=== PATIENT | female | born 1960 | race Caucasian/White ===

== ENCOUNTER 2022-07-25 11:15 | Outpatient (RCR) | payer OTHER ==
[~2022-07-25 11:15] MED LIST: AMITRIPTYLINE H10 M1 PO; ASPIRIN 81M81 MG/TA2 PO; LIPITOR 10MG10 MG PO; LIPITOR20 MG PO; LITHIUM 30300 MG/CAP PO; LOTENSIN 1010 MG/TAB PO; PLAVIX 75MG TAB75 MG PO
== END 2022-07-31 | disposition home or self-care (01) ==
LOC: WSST
DX: R41.841 Cognitive communication deficit (principal); R47.1 Dysarthria and anarthria

== ENCOUNTER 2022-08-22 11:15 | Outpatient (RCR) | payer OTHER | END 2022-08-28 | disposition home or self-care (01) | LOC: WSST | DX: R41.841 Cognitive communication deficit (principal) ==

== ENCOUNTER 2022-09-26 11:15 | Outpatient (RCR) | payer OTHER | END 2022-09-28 | disposition home or self-care (01) | LOC: WSST | DX: I69.322 Dysarthria following cerebral infarction (principal); I69.311 Memory deficit following cerebral infarction; I69.310 Attention and concentration deficit following cerebral infarction ==

== ENCOUNTER 2022-10-17 11:15 | Outpatient (RCR) | payer OTHER | END 2022-10-28 | disposition home or self-care (01) | LOC: WSST | DX: R47.1 Dysarthria and anarthria (principal); R41.841 Cognitive communication deficit ==

== ENCOUNTER → 2022-11-28 | Outpatient (RCR) | payer BC | END | disposition still patient (30) | LOC: WSST | DX: I69.318 Other symptoms and signs involving cognitive functions following cerebral infarction (principal); R47.1 Dysarthria and anarthria ==

== ENCOUNTER → 2023-04-24 | Outpatient (CLI) | payer BC | LOC: CANSCHCLI → MC.RAD 09:15 | DX: Z12.31 Encounter for screening mammogram for malignant neoplasm of breast (principal) ==